=== PATIENT | female | born 1930 | race Caucasian/White ===

== ENCOUNTER 2016-06-11 13:56 | Day surgery (SDC) | payer OTHER ==
[~2016-06-11] VITALS: Ht 168.9 cm; Wt 86.2 kg
[~2016-06-11 13:56] MED LIST: ANTIVERT12.5 MG PO; ENABLEX15 MG PO; HUMALOG100 UNIT/2 SC; LANTUS 3 M100 UNITS1 SC; LASIX40 MG PO; LIDOCREAM15 GM TP; LO-DOSE ASPIRIN81 M2 PO; MIRALAX255 GM PO; NEXIUM20 MG PO; PAIN RELIEF650 MG PO; PRAVACHOL40 MG PO; PRED FORTE100 DROP/5 BOTH EYES; PROAIR RESPICL90 MCG IH; REQUIP3 MG PO; SSD25GM TP; SYMBICORT60 INHALAT IH; SYNTHROID200 MCG PO; TYLENOL EXTRA500 MG PO; ULTRAM50 MG PO; VITAMIN D35000 UNIT PO; ZOFRAN4 MG PO; ZOLOFT50 MG PO
[2016-06-11 16:34] LABS: POINT-OF-CARE METER ID UU14174212
== END 2016-06-11 17:10 | disposition home or self-care (01) ==
LOC: PAIN 13:56 → SDC 14:45 → PAIN 17:10
PROVIDERS: Anesthesiology Pain Medicine
DX: M47.896 Other spondylosis, lumbar region (principal); M53.3 Sacrococcygeal disorders, not elsewhere classified; F41.9 Anxiety disorder, unspecified; K21.9 Gastro-esophageal reflux disease without esophagitis; E05.90 Thyrotoxicosis, unspecified without thyrotoxic crisis or storm; E11.43 Type 2 diabetes mellitus with diabetic autonomic (poly)neuropathy
CPT/HCPCS: 82948; J1030; J2250; J3010; S0020

== ENCOUNTER 2016-06-18 13:44 | Day surgery (SDC) | payer OTHER ==
[~2016-06-18] VITALS: Ht 168.9 cm; Wt 88.5 kg
[~2016-06-18 13:44] MED LIST changes: +PROAIR HFA8.5 GM IH
[2016-06-18 14:21] LABS: POINT-OF-CARE METER ID UU14174212
== END 2016-06-18 15:40 | disposition home or self-care (01) ==
LOC: PAIN 13:44 → SDC 14:45 → PAIN 15:40
PROVIDERS: Anesthesiology Pain Medicine
DX: M47.896 Other spondylosis, lumbar region (principal); M53.3 Sacrococcygeal disorders, not elsewhere classified; F41.9 Anxiety disorder, unspecified; K21.9 Gastro-esophageal reflux disease without esophagitis; D50.9 Iron deficiency anemia, unspecified; G25.81 Restless legs syndrome; E11.9 Type 2 diabetes mellitus without complications; J45.909 Unspecified asthma, uncomplicated
CPT/HCPCS: 82948; J1030; J3010; S0020

== ENCOUNTER 2017-04-28 08:48 | Inpatient (IN) | payer OTHER ==
[~2017-04-28] VITALS: Ht 167.6 cm; Wt 93.4 kg
[2017-04-28 09:59] LABS: BASOPHIL (%) 0.2 % (0-1); EOSINOPHIL (%) 1.4 % (0-5); EOSINOPHIL COUNT 0.1 K/uL (0-0.3); HEMATOCRIT 33.5 % (36.0-46.0); HEMOGLOBIN 10.5 G/DL (11.9-15.5); IMMATURE GRANULOCYTE (%) 0.4 % (0.0-0.7); LYMPHOCYTE (%) 11.2 % (15-42); LYMPHOCYTE COUNT 1.1 K/uL (1.0-2.8); MCH 25.9 PG (29.0-34.0); MCHC 31.3 G/DL (30.0-36.0); MCV 82.5 FL (83-99); MONOCYTE (%) 6.6 % (3-12); MONOCYTE COUNT 0.6 K/uL (0-0.8); NEUTROPHIL (%) 80.2 % (45-76); NEUTROPHIL COUNT 7.8 K/uL (1.8-6.4); PLATELET COUNT 340 K/uL (156-360); RBC DIS.WIDTH-SD 45.6 % (39-53); RED BLOOD COUNT 4.06 M/uL (3.80-5.20); WHITE BLOOD COUNT 9.7 K/uL (4.1-10.2)
[2017-04-28 10:09] LABS: ALBUMIN 3.9 g/dL (3.2-4.8); CHLORIDE 104 mEq/L (99-109); POTASSIUM 4.7 mEq/L (3.7-5.4); SODIUM 140 mEq/L (136-147)
[2017-04-28 10:11] LABS: GLUCOSE 104 mg/dL (70-99); TOTAL PROTEIN 7.2 g/dL (6.4-8.3)
[2017-04-28 10:13] LABS: TOTAL BILIRUBIN 0.3 mg/dL (0.0-1.0)
[2017-04-28 10:15] LABS: ALKALINE PHOSPHATASE 98 IU/L (3-129); CREATININE 1.1 mg/dL (0.6-1.3); GFR ESTIMATE (CALCULATED) 50 mL/min/
[2017-04-28 10:16] LABS: UREA NITROGEN (BUN) 19 mg/dL (9-23)
[2017-04-28 10:17] LABS: AST (GOT) 13 IU/L (2-34)
[2017-04-28 10:18] LABS: ALT (GPT) 15 IU/L (3-49)
[2017-04-28 10:19] LABS: TROP-I INTERPRETATION NEGATIVE; TROPONIN-I 0.01 ng/mL (0.0-0.30)
[2017-04-28] MEDS ORDERED: ANORO ELLIPTA1 EACH IH (12:21)
[2017-04-28] MEDS ORDERED: ACIPHEX20 MG PO (12:22)
[2017-04-28] MEDS ORDERED: LASIX40 MG PO (12:25)
[2017-04-28] MEDS ORDERED: BACTROBAN OINTM22 GM TP (12:26)
[2017-04-28] MEDS ORDERED: CEFTIN500 MG PO (12:26)
[2017-04-28] MEDS ORDERED: TOPROL XL25 MG PO (12:27)
[2017-04-28] MEDS ORDERED: FLONASE16 G1 BOTH NARES (12:27)
[2017-04-28 19:22] VITALS: BP 163/74
[2017-04-29 00:19] VITALS: BP 173/81
[2017-04-29 06:33] LABS: CHLORIDE 101 MEQ/L (99-109); CREATININE 1.1 MG/DL (0.6-1.3); GFR ESTIMATE (CALCULATED) 50 mL/min/; GLUCOSE 196 mg/dL (70-99); IRON 40 MCG/DL (35-150); POTASSIUM 5.3 MEQ/L (3.7-5.4); SODIUM 138 MEQ/L (136-147); UREA NITROGEN (BUN) 20 mg/dL (9-23)
[2017-04-29 06:58] LABS: HEMATOCRIT 33.2 % (36.0-46.0); HEMOGLOBIN 10.1 G/DL (11.9-15.5); MCH 25.3 PG (29.0-34.0); MCHC 30.4 G/DL (30.0-36.0); PLATELET COUNT 346 K/uL (156-360); RBC DIS.WIDTH-CV 15.1 % (11.8-14.6); RBC DIS.WIDTH-SD 46.2 % (39-53); WHITE BLOOD COUNT 9.6 K/uL (4.1-10.2)
[2017-04-29 07:02] LABS: HEMOGLOBIN A1c (GLYCOHEMOGLOB) 8.7 % HGB (Below 5.7)
[2017-04-29 10:02] VITALS: BP 154/68
[2017-04-29 16:19] VITALS: BP 178/75
[2017-04-29 20:52] VITALS: BP 159/74
[2017-04-29 23:50] VITALS: BP 163/74
[2017-04-30 05:10] LABS: HEMATOCRIT 31.6 % (36.0-46.0); HEMOGLOBIN 9.9 G/DL (11.9-15.5); MCH 25.7 PG (29.0-34.0); MCHC 31.3 G/DL (30.0-36.0); MCV 82.1 FL (83-99); PLATELET COUNT 295 K/uL (156-360); RBC DIS.WIDTH-CV 14.9 % (11.8-14.6); RED BLOOD COUNT 3.85 M/uL (3.80-5.20); WHITE BLOOD COUNT 8.3 K/uL (4.1-10.2)
[2017-04-30 05:35] LABS: CHLORIDE 100 MEQ/L (99-109); CREATININE 0.9 MG/DL (0.6-1.3); GFR ESTIMATE (CALCULATED) > 59 mL/min/; GLUCOSE 170 mg/dL (70-99); POTASSIUM 4.6 MEQ/L (3.7-5.4); SODIUM 136 MEQ/L (136-147); UREA NITROGEN (BUN) 17 mg/dL (9-23)
[2017-04-30 07:52] VITALS: BP 184/78
[2017-04-30 11:51] VITALS: BP 144/62
[2017-04-30 15:23] VITALS: BP 142/62
[2017-04-30 19:00] VITALS: BP 158/72
[2017-05-01 00:58] VITALS: BP 163/73
[2017-05-01 06:04] LABS: GFR ESTIMATE (CALCULATED) 56 mL/min/; GLUCOSE 196 mg/dL (70-99); UREA NITROGEN (BUN) 21 mg/dL (9-23)
[2017-05-01 06:05] LABS: CHLORIDE 100 MEQ/L (99-109); POTASSIUM 4.9 MEQ/L (3.7-5.4); SODIUM 137 MEQ/L (136-147)
[2017-05-01 07:35] VITALS: BP 168/77
[2017-05-01] MEDS ORDERED: LEVOFLOXACIN500 MG PO (07:43)
[2017-05-01] MEDS ORDERED: AUGMENTIN875 MG PO (07:44)
[2017-05-01] MEDS ORDERED: ATARAX,VISTARIL25 MG PO (11:37)
[2017-05-01 12:11] VITALS: BP 154/87
== END 2017-05-01 14:30 | disposition home or self-care (01) | DRG 603 ==
LOC: EME 08:48 → 5WEST 10:37 → EDOF 10:37 → ENRESERV 10:38 → 5WEST 19:18
PROVIDERS: Emergency Medicine; Family Medicine
DX: L03.116 Cellulitis of left lower limb (principal); B96.20 Unspecified Escherichia coli [E. coli] as the cause of diseases classified elsewhere; D50.9 Iron deficiency anemia, unspecified; E11.65 Type 2 diabetes mellitus with hyperglycemia; I87.2 Venous insufficiency (chronic) (peripheral); I87.8 Other specified disorders of veins; L97.929 Non-pressure chronic ulcer of unspecified part of left lower leg with unspecified severity; J44.9 Chronic obstructive pulmonary disease, unspecified; I89.0 Lymphedema, not elsewhere classified; I10 Essential (primary) hypertension; K21.9 Gastro-esophageal reflux disease without esophagitis; G25.81 Restless legs syndrome; M19.90 Unspecified osteoarthritis, unspecified site; E03.9 Hypothyroidism, unspecified; R32 Unspecified urinary incontinence; F32.9 Major depressive disorder, single episode, unspecified; E66.9 Obesity, unspecified; Z68.33 Body mass index [BMI] 33.0-33.9, adult; Z66 Do not resuscitate; Z79.4 Long term (current) use of insulin; Z87.891 Personal history of nicotine dependence; Z96.653 Presence of artificial knee joint, bilateral
CPT/HCPCS: 71046; 73590; 80048; 80053; 82948; 83036; 83540; 83605; 84484; 85025; 85027; 87040; 87641; 93005; 93971; 94640; 94640 76; 99202; 99281; 99285; A6260; G8978 GP CH; G8979 GP CH; G8980 GP CH; J0295; J0690; J0696; J1650; J1815; J1885; J3010; J3370; J7050; Q0177

== ENCOUNTER 2017-06-16 09:06 | Day surgery (SDC) | payer OTHER ==
[~2017-06-16] VITALS: Ht 165.1 cm; Wt 92.1 kg
[~2017-06-16 09:06] MED LIST changes: +ACIPHEX20 MG PO; +ANORO ELLIPTA1 EACH IH; +ATARAX,VISTARIL25 MG PO; +AUGMENTIN875 MG PO; +BACTROBAN OINTM22 GM TP; +CEFTIN500 MG PO; +FLONASE16 G1 BOTH NARES; +LEVOFLOXACIN500 MG PO; -LIDOCREAM15 GM TP; +RECTASMOOTHE30 GM TP; +TOPROL XL25 MG PO; +TYLENOL ARTHRI650 MG PO; -TYLENOL EXTRA500 MG PO
== END 2017-06-16 10:52 | disposition home or self-care (01) ==
LOC: PAIN 09:06
PROVIDERS: Anesthesiology Pain Medicine
PROC: 3E0U33Z Introduction of Anti-inflammatory into Joints, Percutaneous Approach (ICD-10-PCS; principal; 2017-06-16)
PROC: 3E0U3BZ Introduction of Anesthetic Agent into Joints, Percutaneous Approach (ICD-10-PCS; principal; 2017-06-16)
DX: M53.3 Sacrococcygeal disorders, not elsewhere classified (principal); M46.1 Sacroiliitis, not elsewhere classified; M47.816 Spondylosis without myelopathy or radiculopathy, lumbar region; F41.9 Anxiety disorder, unspecified; J45.909 Unspecified asthma, uncomplicated; I10 Essential (primary) hypertension; E11.9 Type 2 diabetes mellitus without complications; K21.9 Gastro-esophageal reflux disease without esophagitis; E05.90 Thyrotoxicosis, unspecified without thyrotoxic crisis or storm; E78.00 Pure hypercholesterolemia, unspecified; Z87.891 Personal history of nicotine dependence; Z79.82 Long term (current) use of aspirin; Z79.891 Long term (current) use of opiate analgesic; Z79.4 Long term (current) use of insulin
CPT/HCPCS: 82948; J1030; J3010; S0020

== ENCOUNTER 2017-06-18 00:14 | Inpatient (IN) | payer OTHER ==
[~2017-06-18] VITALS: Ht 167.6 cm; Wt 85.3 kg
[2017-06-18 00:44] LABS: HEMATOCRIT 33.8 % (36.0-46.0); MCH 26.8 PG (29.0-34.0); MCHC 32.5 G/DL (30.0-36.0); MCV 82.2 FL (83-99); PLATELET COUNT 156 K/uL (156-360); RBC DIS.WIDTH-SD 48.8 % (39-53); RED BLOOD COUNT 4.11 M/uL (3.80-5.20); WHITE BLOOD COUNT 18.3 K/uL (4.1-10.2)
[2017-06-18 00:53] LABS: CHLORIDE 101 mEq/L (99-109); POTASSIUM 4.8 mEq/L (3.7-5.4); SODIUM 134 mEq/L (136-147)
[2017-06-18 00:55] LABS: GLUCOSE 230 mg/dL (70-99)
[2017-06-18 00:55] LABS: APPEARANCE CLOUDY ((CLEAR)); BILIRUBIN NEGATIVE; BLOOD MODERATE; COLOR YELLOW ((YELLOW)); GLUCOSE (STRIP) NEGATIVE; KETONES 5; LEUKOCYTES LARGE; NITRITE POSITIVE; PROTEIN (STRIP) 100; SPECIFIC GRAVITY 1.015 (1.000-1.030); UROBILINOGEN 0.2 MG/DL (0.2-1.0)
[2017-06-18 00:57] LABS: TOTAL BILIRUBIN 0.7 mg/dL (0.0-1.0)
[2017-06-18 00:58] LABS: ALKALINE PHOSPHATASE 109 IU/L (3-129)
[2017-06-18 00:59] LABS: CREATININE 1.4 mg/dL (0.6-1.3); GFR ESTIMATE (CALCULATED) 38 mL/min/
[2017-06-18 01:00] LABS: AST (GOT) 15 IU/L (2-34); UREA NITROGEN (BUN) 31 mg/dL (9-23)
[2017-06-18 01:02] LABS: ALT (GPT) 15 IU/L (3-49); LIPASE 5 U/L (1.0-51.0)
[2017-06-18 01:04] LABS: TROP-I INTERPRETATION NEGATIVE; TROPONIN-I 0.03 ng/mL (0.0-0.30)
[2017-06-18 01:24] LABS: BACTERIA 1+ /HPF; EPITHELIAL CELLS RARE /HPF; MUCUS NONE SEEN /LPF; RED BLOOD CELLS 30-40 /HPF (0-5); UCUL ADDED? YES; WHITE BLOOD CELLS TNTC /HPF (0-5)
[2017-06-18 04:23] VITALS: BP 136/90
[2017-06-18 06:12] LABS: TROP-I INTERPRETATION NEGATIVE; TROPONIN-I 0.02 ng/mL (0.0-0.30)
[2017-06-18 08:00] VITALS: BP 148/67
[2017-06-18] MEDS ORDERED: CLOBETASOL EMOL45 GM TP (09:16)
[2017-06-18] MEDS ORDERED: DULOXETINE HCL30 MG PO (09:19)
[2017-06-18] MEDS ORDERED: ONDANSETRON HCL4 MG PO (09:20)
[2017-06-18] MEDS ORDERED: BEVESPI AEROS10.7 GM IH (09:20)
[2017-06-18] MEDS ORDERED: ANTIVERT12.5 MG PO (09:20)
[2017-06-18 11:00] VITALS: BP 111/56
[2017-06-18 13:51] LABS: FOLIC ACID (FOLATE) > 22.0 NG/ML (5.0-22.0)
[2017-06-18 13:58] LABS: GLUCOSE 314 mg/dL (70-99)
[2017-06-18 16:20] VITALS: BP 118/58
[2017-06-18 17:52] LABS: BASE EXCESS -2.5 mEq/L (-3 to +3); BICARBONATE 21.4 mEq/L (22-26); CARBOXY HGB 1.5 % (0-5); COMMENTS - BLOOD GASES C+; DEVICE NC; METHEMOGLOBIN 1.5 % (0-1.5); O2 FLOW 2 L/MIN; PCO2 33 mm Hg (35-45); PO2 110 mm Hg (80-100); SITE RR; pH 7.42 (7.35-7.45)
[2017-06-18 20:01] VITALS: BP 137/63
[2017-06-18 23:48] VITALS: BP 162/71
[2017-06-19 04:00] VITALS: BP 166/78
[2017-06-19 05:54] LABS: HEMATOCRIT 30.8 % (36.0-46.0); HEMOGLOBIN 9.7 G/DL (11.9-15.5); MCH 26.2 PG (29.0-34.0); MCHC 31.5 G/DL (30.0-36.0); MCV 83.2 FL (83-99); PLATELET COUNT 128 K/uL (156-360); RBC DIS.WIDTH-CV 16.1 % (11.8-14.6); RBC DIS.WIDTH-SD 49.1 % (39-53); WHITE BLOOD COUNT 10.6 K/uL (4.1-10.2)
[2017-06-19 06:19] LABS: CHLORIDE 105 MEQ/L (99-109); GFR ESTIMATE (CALCULATED) > 59 mL/min/; GLUCOSE 166 mg/dL (70-99); POTASSIUM 4.3 MEQ/L (3.7-5.4); SODIUM 137 MEQ/L (136-147); UREA NITROGEN (BUN) 26 mg/dL (9-23)
[2017-06-19 06:20] LABS: CREATININE 0.9 MG/DL (0.6-1.3)
[2017-06-19 08:09] VITALS: BP 149/71
[2017-06-19 12:26] VITALS: BP 184/79
[2017-06-19 13:52] VITALS: BP 154/78
[2017-06-19 16:30] VITALS: BP 154/78
[2017-06-19 19:39] VITALS: BP 166/80
[2017-06-20 00:08] VITALS: BP 177/78
[2017-06-20 04:43] VITALS: BP 161/75
[2017-06-20 06:10] LABS: HEMATOCRIT 34.8 % (36.0-46.0); HEMOGLOBIN 10.6 G/DL (11.9-15.5); MCH 25.8 PG (29.0-34.0); MCHC 30.5 G/DL (30.0-36.0); MCV 84.7 FL (83-99); PLATELET COUNT 163 K/uL (156-360); RBC DIS.WIDTH-CV 15.9 % (11.8-14.6); RBC DIS.WIDTH-SD 49.1 % (39-53); RED BLOOD COUNT 4.11 M/uL (3.80-5.20); WHITE BLOOD COUNT 11.1 K/uL (4.1-10.2)
[2017-06-20 06:15] LABS: CHLORIDE 103 MEQ/L (99-109); CREATININE 0.8 MG/DL (0.6-1.3); GFR ESTIMATE (CALCULATED) > 59 mL/min/; GLUCOSE 142 mg/dL (70-99); POTASSIUM 4.1 MEQ/L (3.7-5.4); SODIUM 135 MEQ/L (136-147); UREA NITROGEN (BUN) 20 mg/dL (9-23)
[2017-06-20 07:47] VITALS: BP 158/81
[2017-06-20] MEDS ORDERED: ASPIR-LOW81 MG PO (11:08)
[2017-06-20] MEDS ORDERED: CIPRO500 MG PO (11:13)
[2017-06-20 12:07] VITALS: BP 154/76
== END 2017-06-20 13:55 | disposition home or self-care (01) | DRG 690 ==
LOC: EME → EDBD 00:14 → EME 00:14 → EDOF 02:59 → 3EAST 02:59 → ENRESERV 03:00 → 3EAST 04:12
PROVIDERS: Emergency Medicine; Hospitalist; Physician Assistant
DX: N39.0 Urinary tract infection, site not specified (principal); N17.9 Acute kidney failure, unspecified; I10 Essential (primary) hypertension; S00.93XA Contusion of unspecified part of head, initial encounter; E66.9 Obesity, unspecified; S81.802A Unspecified open wound, left lower leg, initial encounter; E11.65 Type 2 diabetes mellitus with hyperglycemia; B96.20 Unspecified Escherichia coli [E. coli] as the cause of diseases classified elsewhere; W18.30XA Fall on same level, unspecified, initial encounter; D72.829 Elevated white blood cell count, unspecified; K21.9 Gastro-esophageal reflux disease without esophagitis; J44.9 Chronic obstructive pulmonary disease, unspecified; E78.5 Hyperlipidemia, unspecified; I45.10 Unspecified right bundle-branch block; Z96.653 Presence of artificial knee joint, bilateral; F41.9 Anxiety disorder, unspecified; Z66 Do not resuscitate; D64.9 Anemia, unspecified; R55 Syncope and collapse; G89.29 Other chronic pain; M54.9 Dorsalgia, unspecified; R09.02 Hypoxemia; Z87.891 Personal history of nicotine dependence; Y92.019 Unspecified place in single-family (private) house as the place of occurrence of the external cause; Z88.2 Allergy status to sulfonamides; Z88.8 Allergy status to other drugs, medicaments and biological substances; Z83.3 Family history of diabetes mellitus; Z68.30 Body mass index [BMI] 30.0-30.9, adult; Z79.4 Long term (current) use of insulin
CPT/HCPCS: 36600; 70450; 71045; 72125; 80048; 80053; 81003; 82306; 82607; 82746; 82803; 82948; 83605; 83690; 84443; 84484; 84999; 85027; 87040; 87077; 87086; 87186; 87801; 93005; 94640; 94640 76; 94660; 99202; 99281; 99284; J0696; J1644; J1815; J2405; J7030; J7040